=== PATIENT | female | born 1955 | race Caucasian/White ===

== ENCOUNTER 2025-01-09 15:37 | Inpatient (IN) | payer OTHER ==
[~2025-01-09] VITALS: Ht 162.6 cm; Wt 79.8 kg
--- NOTE | 2025-01-09 16:24 | ED.PDOC ---
History of Present Illness HPI Comments This is a 69 year-old female, with a Hx of HTN, Afib, CHF, CAD, DM, and high cholesterol, who presents to the ED with a chief complaint of abnormal labs as of today. Patient states she was called by [facility] to go to the ER for abnormal labs that were drawn today. Patient does not know which lab is abnormal. Patient reports being on blood thinners as of 1.5 months ago. Patient has no further complaints at this time and otherwise denies chest pain, dizziness, headache, N/V/D, fever, or chills. Patient was mildly hypertensive at arrival. 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 Family History Family History: Reviewed,noncontributory to illness Social History Smoker: Non-Smoker Alcohol: Denies ETOH Use Drugs: Denies Drug Use Lives In: Home Constitutional: denies: chills, diaphoresis, fatigue, fever, malaise, sweats, weakness, others EENTM: denies: blurred vision, double vision, ear bleeding, ear discharge, ear drainage, ear pain, ear ringing, eye pain, eye redness, hearing loss, mouth pain, mouth swelling, nasal discharge, nose bleeding, nose congestion, nose pain, photophobia, tearing, throat pain, throat swelling, voice changes, others Respiratory: denies: cough, hemoptysis, orthopnea, SOB at rest, shortness of breath, SOB with excertion, stridor, wheezing, others Cardiovascular: denies: chest pain, dizzy spells, diaphoresis, Dyspnea on exertion, edema, irregular heart beat, left arm pain, lightheadedness, palpitations, PND, syncope, others Gastrointestinal: denies: abdomen distended, abdominal pain, blood streaked bowels, constipated, diarrhea, dysphagia, difficulty swallowing, hematemesis, melena, nausea, poor appetite, poor fluid intake, rectal bleeding, rectal pain, vomiting, others Genitourinary: denies: abnormal vagina bleeding, burning, dyspareunia, dysuria, flank pain, frequency, hematuria, incontinence, pain, , vagina discharge, urgency, others Neurological: denies: dizziness, fainting, headache, left sided numbness, left sided weakness, numbness, paresthesia, pre-existing deficit, right sided numbness, right sided weakness, seizure, speech problems, tingling, tremors, weakness, others Musculoskeletal: denies: back pain, gout, joint pain, joint swelling, muscle pain, muscle stiffness, neck pain, others Integumetry: denies: bruises, change in color, change in hair/nails, dryness, laceration, lesions, lumps, rash, wounds, others Allergic/Immunocompromised: denies: Difficulty Healing, Frequent Infections, Hives, Itching, others Hematologic/Lymphatic: denies: anemia, blood clots, easy bleeding, easy bruising, swollen glands, others Endocrine: denies: excessive hunger, excessive sweating, excessive thirst, excessive urination, flushing, intolerance to cold, intolerance to heat, unexplained weight gain, unexplained weight loss, others Psychiatric: denies: anxiety, bipolar disorder, depression, hopeless, panic disorder, schizophrenia, sleepless, suicidal, others All Other Systems: Reviewed and Negative Physical Exam General Appearance: No Apparent Distress (Patient is in no distress at time of evaluation.), Normal HEENT: Normal ENT Inspection, Pharynx Normal, TMs Normal Neck: Full Range of Motion, Non-Tender, Normal, Normal Inspection Respiratory: Chest Non-Tender, Lungs Clear, No Accessory Muscle Use, No Respiratory Distress, Normal Breath Sounds Cardiovascular: No Edema, No JVD, No Murmur, No Gallop, Normal Peripheral Pulses, Regular Rate/Rhythm Breast Exam: Deferred Gastrointestinal: No Organomegaly, Non Tender, No Pulsatile Mass, Normal Bowel Sounds, Soft Genitalia: Deferred Pelvic: Deferred Rectal: Deferred Extremities: No calf tenderness, Normal capillary refill, Normal inspection, Normal range of motion, Non-tender, No pedal edema Neurologic: Alert Cerebellar Function: NOT DONE Reflexes: NOT DONE Skin: Dry, Normal Color, Warm Lymphatic: No Adenopathy Was a procedure done? Was a procedure done?: No Differential Dx Considerations may include: Sepsis, electrolyte abnormality, delayed clotting factor X-Ray, Labs, Meds, VS Vital Signs Date Time Temp Pulse Resp B/P (MAP) Pulse Ox O2 Delivery O2 Flow Rate FiO2 01/09/25 15:42 97.8 99 18 155/73 97 97.8 Lab Test 01/09/25 16:19 Range/Units White Blood Count 6.4 4.4-10.8 10^3/uL Red Blood Count 3.94 L 4.0-5.20 10^6/uL Hemoglobin 11.7 L 12.2-16.2 g/dL Hematocrit 35.3 L 36.0-46.0 % Mean Corpuscular Volume 89.4 80.0-100.0 fL Mean Corpuscular Hemoglobin 29.7 28.0-32.0 pg Mean Corpuscular Hemoglobin Concent 33.2 32.0-36.0 g/dL Red Cell Distribution Width 15.9 H 11.8-14.3 % Platelet Count 336 140-450 10^3/uL Mean Platelet Volume 8.3 6.9-10.8 fL Neutrophils (%) (Auto) 72.8 37.0-80.0 % Lymphocytes (%) (Auto) 17.8 10.0-50.0 % Monocytes (%) (Auto) 8.4 0.0-12.0 % Eosinophils (%) (Auto) 0.1 0.0-7.0 % Basophils (%) (Auto) 0.9 0.0-2.0 % Neutrophils # (Auto) 4.7 1.6-8.6 10 ^3/uL Lymphocytes # (Auto) 1.1 0.4-5.4 10 ^3/uL Monocytes # (Auto) 0.5 0-1.3 10 ^3/uL Eosinophils # (Auto) 0 0-0.8 10 ^3/uL Basophils # (Auto) 0.1 0-0.2 10 ^3/uL Nucleated Red Blood Cells 0.1 % Prothrombin Time 9.3-11.8 sec Prothrombin Time INR > 8.0 *H 0.9-1.15 Activated Partial Thromboplast Time 70.3 *H 24.5-34.5 SEC Sodium Level 135 L 136-145 mmol/L Potassium Level 5.2 H 3.5-5.1 mmol/L Chloride Level 101 98-107 mmol/L Carbon Dioxide Level 26 20-31 mmol/L Anion Gap 8 5-15 Blood Urea Nitrogen 23 9-23 mg/dL Creatinine 1.25 H 0.550-1.02 mg/dL Glomerular Filtration Rate Calc 46 >90 mL/min BUN/Creatinine Ratio 18.4 10.0-20.0 Serum Glucose 304 H 74-106 mg/dL Lactic Acid Level 3.2 *H 0.4-2.0 mmol/L Calcium Level 8.8 8.7-10.4 mg/dL Total Bilirubin 1.4 H 0.2-1.0 mg/dL Aspartate Amino Transferase (AST) 23 13-40 U/L Alanine Aminotransferase (ALT) 26 7-40 U/L Alkaline Phosphatase 80 46-116 U/L Troponin I High Sensitivity 6 </=34 ng/L B-Type Natriuretic Peptide 133.80 0-100 pg/mL Total Protein 6.4 5.7-8.2 g/dL Albumin 3.5 3.2-4.8 g/dL Lipase 28 12-53 U/L X-Ray, Labs, Meds, VS Comment All studies performed the ED were evaluated by me personally. Serum laboratories revealed a mild anemia, elevated lactic acid, hyperglycemia with elevated clotting factors. INR was greater than eight and a PTT was over 70. Patient will be admitted for observation of clotting concerns as patient should have a multi day reprieve from her blood thinners. No reversal agents were started in the ED. Images Reviewed?: Images reviewed and evaluated by me Time of 1ST Reevaluation: 17:40 Reevaluation 1ST: Unchanged Consultation: PCP Patient Education/Counseling: Diagnosis, Treatment Family Education/Counseling: Diagnosis, Treatment SEPSIS Sepsis Screen Date sepsis recognized/suspect: Jan 09, 2025 Time Sepsis recognized/suspect: 1542 Recent Procedure: No On Antibiotic Therapy: No Respiratory Rate >20: No Heart Rate >90: Yes Temp<36 C (96.8 F) or >38.3 C: No SBP <90 or MAP <65 mmHG: No New Acute Mental Status Change: No Is the patient on CPAP, BIPAP,: No Physician Orders Troponin-I Hs (01/09/25 17:06) Troponin-I Hs (01/09/25 19:06) Electrocardigram (01/09/25 16:06) Urinalysis (01/09/25 16:09) Sodium Chloride 0.9% (01/09/25 17:15) Heplock Iv (01/09/25 ) Vital Signs Date Time Temp Pulse Resp B/P (MAP) Pulse Ox O2 Delivery O2 Flow Rate FiO2 01/09/25 15:42 97.8 99 18 155/73 97 97.8 Laboratory Tests Test 01/09/25 16:19 Lactic Acid Level 3.2 mmol/L (0.4-2.0) *H White Blood Count 6.4 10^3/uL (4.4-10.8) Departure 1 Departure Time of Disposition: 17:40 Impression: Primary Impression: Elevated clotting time Additional Impressions: Hyperglycemia Elevated lactic acid level Anemia Disposition: 09 ADMITTED INPATIENT Condition: Stable Discharged With: Self, Spouse Critical Care Note Critical Care Time?: No Stability Stability form required: No Heart Score Heart Score: Heart Score Response (Comments) Value History N/A 0 EKG N/A 0 Age N/A 0 Risk Factors N/A 0 Troponin N/A 0 Total 0 I personally scribed for IRIS LEE PAC ([email or web address]) on 01/09/25 at 16:24. Electronically submitted by Francoise GalavizYobble). IRIS LEE PAC Jan 09, 2025 16:24
[2025-01-09 16:33] LABS: Hematocrit 35.3 % (36.0-46.0); Hemoglobin 11.7 g/dL (12.2-16.2); Mean Corpuscular Hemoglobin 29.7 pg (28.0-32.0); Mean Corpuscular Volume 89.4 fL (80.0-100.0); Nucleated Red Blood Cells % 0.1 %
[2025-01-09 16:50] LABS: Alanine Aminotransferase 26 U/L (7-40); Albumin 3.5 g/dL (3.2-4.8); Alkaline Phosphatase 80 U/L (46-116); Anion Gap 8 (5-15); BUN/Creatinine Ratio 18.4 (10.0-20.0); Blood Urea Nitrogen 23 mg/dL (9-23); Calcium 8.8 mg/dL (8.7-10.4); Carbon Dioxide 26 mmol/L (20-31); Chloride 101 mmol/L (98-107); Lipase 28 U/L (12-53); Total Protein 6.4 g/dL (5.7-8.2)
[2025-01-09 16:51] LABS: Bilirubin, Total 1.4 mg/dL (0.2-1.0); Glucose 304 mg/dL (74-106); Potassium 5.2 mmol/L (3.5-5.1); Sodium 135 mmol/L (136-145)
[2025-01-09 16:52] LABS: Lactic Acid w/Reflex 3.2 mmol/L (0.4-2.0)
[2025-01-09 17:07] LABS: INR > 8.0 (0.9-1.15); Partial Thromboplastin Time 70.3 SEC (24.5-34.5)
[2025-01-09 18:07] VITALS: PULSE 98; RESP 15; O2SAT 96
[2025-01-09] MEDS: SODIUM CHLORIDE 0.9% 1,000 ML IV ONE (18:50)
[2025-01-09] MEDS ORDERED: ONDANSETRON HCL 4 MG/2 ML VIAL IV PRN (20:00)
[2025-01-09] MEDS ORDERED: ACETAMINOPHEN 325 MG TAB PO PRN (20:00)
[2025-01-09] MEDS ORDERED: DEXTROSE (50%) 50ML SYRG IV PRN (20:00)
[2025-01-10] VITALS (8 sets, daily range): BP systolic 105–131; BP diastolic 47–72; PULSE 92–141; RESP 18–19; TEMP 97.3–98.7; O2SAT 91–100
[2025-01-10] MEDS: ACCU-CHEK COMFORT CURVE STRIP VI SCH
--- NOTE | 2025-01-10 00:03 | DVHHP2 ---
History of Present Illness Reason for Visit: Abnormal lab results History of Present Illness 69-year-old female presents for evaluation of abnormal lab results. Patient was contacted to present to the emergency department due to abnormally high INR level. Patient is currently on warfarin. Denies hematuria, melena or hematemesis. Past Medical History Atrial fibrillation, CHF, CAD, diabetes mellitus, dyslipidemia, hypertension, mi Past Surgical History Pacemaker, tubal ligation Family History Noncontributory Smoke: No ALCOHOL: none Drugs: None Lives: with Family Review of Systems Review of Systems Review of systems are currently negative otherwise addressed in HPI. Allergies: Coded Allergies: Iodine (Verified Allergy, Unknown, 01/09/25) Medications Current Medications Medications Dose Ordered Sig/João Route Start Time Stop Time Status Last Admin Dose Admin Gabapentin 100 mg BID PO 01/09/25 22:00 Isosorbide Dinitrate 20 mg BID PO 01/09/25 22:00 Metoprolol Succinate 50 mg DAILY PO 01/10/25 10:00 Atorvastatin Calcium 80 mg HS PO 01/09/25 22:00 Losartan Potassium 25 mg DAILY PO 01/10/25 10:00 Furosemide 40 mg DAILY PO 01/10/25 10:00 Diagnostic Test (Pha) 1 strip Q6HR 01/10/25 00:00 Insulin Human Regular Q6HR SC 01/10/25 00:00 Dextrose 50 ml UD PRN IV 01/09/25 20:00 Ondansetron HCl 4 mg Q4HP PRN IV 01/09/25 20:00 Acetaminophen 650 mg Q6HP PRN PO 01/09/25 20:00 Levetiracetam 1,000 mg BID PO 01/09/25 22:00 Exam Vital Signs Vital Signs Date Time Temp Pulse Resp B/P (MAP) Pulse Ox O2 Delivery O2 Flow Rate FiO2 01/09/25 19:30 Room Air* 0 21 01/09/25 19:30 98.5 114 15 132/47 (75) 100 98.5 Exam Gen: 69-year-old female in no apparent distress. Skin: Warm, dry, normal color and texture, no rash. HEENT: Normocephalic atraumatic, mucous membranes moist and pink. Neck: Cervical and supraclavicular nodes normal without enlargement, trachea is midline, thyroid gland is normal without masses. Pulmonary: Clear to auscultation and percussion bilaterally. Cardiac: Regular rate and rhythm. No murmur Abdomen: Soft, nontender, nondistended, bowel sounds present all 4 quadrants, no guarding, no rigidity, no organomegaly. Extremities: No cyanosis, clubbing, no edema Neuro: Cranial nerves II through XII grossly intact, normal affect and speech, no focal motor deficits. Labs/Xrays Labs Test 01/09/25 18:43 01/09/25 16:19 Range/Units Lactic Acid Level 1.3 0.4-2.0 mmol/L Troponin I High Sensitivity 5 </=34 ng/L White Blood Count 6.4 4.4-10.8 10^3/uL Red Blood Count 3.94 L 4.0-5.20 10^6/uL Hemoglobin 11.7 L 12.2-16.2 g/dL Hematocrit 35.3 L 36.0-46.0 % Mean Corpuscular Volume 89.4 80.0-100.0 fL Mean Corpuscular Hemoglobin 29.7 28.0-32.0 pg Mean Corpuscular Hemoglobin Concent 33.2 32.0-36.0 g/dL Red Cell Distribution Width 15.9 H 11.8-14.3 % Platelet Count 336 140-450 10^3/uL Mean Platelet Volume 8.3 6.9-10.8 fL Neutrophils (%) (Auto) 72.8 37.0-80.0 % Lymphocytes (%) (Auto) 17.8 10.0-50.0 % Monocytes (%) (Auto) 8.4 0.0-12.0 % Eosinophils (%) (Auto) 0.1 0.0-7.0 % Basophils (%) (Auto) 0.9 0.0-2.0 % Neutrophils # (Auto) 4.7 1.6-8.6 10 ^3/uL Lymphocytes # (Auto) 1.1 0.4-5.4 10 ^3/uL Monocytes # (Auto) 0.5 0-1.3 10 ^3/uL Eosinophils # (Auto) 0 0-0.8 10 ^3/uL Basophils # (Auto) 0.1 0-0.2 10 ^3/uL Nucleated Red Blood Cells 0.1 % Prothrombin Time 9.3-11.8 sec Prothrombin Time INR > 8.0 *H 0.9-1.15 Activated Partial Thromboplast Time 70.3 *H 24.5-34.5 SEC Sodium Level 135 L 136-145 mmol/L Potassium Level 5.2 H 3.5-5.1 mmol/L Chloride Level 101 98-107 mmol/L Carbon Dioxide Level 26 20-31 mmol/L Anion Gap 8 5-15 Blood Urea Nitrogen 23 9-23 mg/dL Creatinine 1.25 H 0.550-1.02 mg/dL Glomerular Filtration Rate Calc 46 >90 mL/min BUN/Creatinine Ratio 18.4 10.0-20.0 Serum Glucose 304 H 74-106 mg/dL Calcium Level 8.8 8.7-10.4 mg/dL Total Bilirubin 1.4 H 0.2-1.0 mg/dL Aspartate Amino Transferase (AST) 23 13-40 U/L Alanine Aminotransferase (ALT) 26 7-40 U/L Alkaline Phosphatase 80 46-116 U/L B-Type Natriuretic Peptide 133.80 0-100 pg/mL Total Protein 6.4 5.7-8.2 g/dL Albumin 3.5 3.2-4.8 g/dL Lipase 28 12-53 U/L SEPSIS Sepsis Screen Date sepsis recognized/suspect: Jan 09, 2025 Time Sepsis recognized/suspect: 1929 Recent Procedure: No On Antibiotic Therapy: No Respiratory Rate >20: No Heart Rate >90: Yes Temp<36 C (96.8 F) or >38.3 C: No SBP <90 or MAP <65 mmHG: No New Acute Mental Status Change: No Is the patient on CPAP, BIPAP,: No Physician Orders Electrocardigram (01/09/25 16:06) Urinalysis (01/09/25 16:09) Heplock Iv (01/09/25 ) Gabapentin Capsule (Neurontin Capsule) (01/09/25 22:00) Isosorbide Dinitrate Tablet (Isordil Tab (01/09/25 22:00) Metoprolol Xl Succinate (Toprol Xl) (01/10/25 10:00) Atorvastatin (Lipitor) (01/09/25 22:00) Losartan Tablet (Cozaar Tablet) (01/10/25 10:00) Furosemide Tablet (Lasix Tablet) (01/10/25 10:00) PTPTT (01/10/25 04:00) Basic Metabolic Panel (01/10/25 04:00) Glucose Blood (Accu-Chek Comfort Curve T (01/10/25 00:00) Insulin R (Human) (Insulin R) (01/10/25 00:00) Dextrose 50% Syringe (01/09/25 20:00) Ondansetron Hcl (Zofran) (01/09/25 20:00) Complete Blood Count (01/10/25 04:00) Cardiac Diet-2gna,Lofat,Lochol (01/10/25 Breakfast) Condition: Stable (01/09/25 19:53) Acetaminophen Tablet (Tylenol Tablet) (01/09/25 20:00) Bedrest With Bathroom Privileg (01/09/25 19:53) Levetiracetam Tablet (Keppra Tablet) (01/09/25 22:00) Admit (01/09/25 21:26) Vital Signs Date Time Temp Pulse Resp B/P (MAP) Pulse Ox O2 Delivery O2 Flow Rate FiO2 01/09/25 19:30 Room Air* 0 21 01/09/25 19:30 98.5 114 15 132/47 (75) 100 98.5 01/09/25 18:07 97.5 98 15 106/39 (61) 96 97.5 01/09/25 18:07 98 15 96 Room Air* 0 21 Laboratory Tests Test 01/09/25 16:19 01/09/25 18:43 Lactic Acid Level 3.2 mmol/L (0.4-2.0) *H 1.3 mmol/L (0.4-2.0) White Blood Count 6.4 10^3/uL (4.4-10.8) Medications Medications Dose Ordered Sig/João Route Start Time Stop Time Status Last Admin Dose Admin Sodium Chloride 1,000 ml @ 1,000 mls/hr Q1H ONCE IV 01/09/25 17:15 01/09/25 18:14 DC 01/09/25 18:50 1,000 MLS/HR Assessment/Plan Assessment/Plan Assessment Supratherapeutic INR History of atrial fibrillation, on warfarin Diabetes mellitus Hypertension History of DE Plan Admit the patient to Med surge to the hospitalist Vitamin K subcutaneously Hold warfarin Repeat coags in a.m. labs Monitor for bleeding. Continue treatment per orders. Plan discussed with: Patient My Orders Orders - NETO CONTRERAS Procedure Category Date Status Time Gabapentin Capsule PHA 01/09/25 In Process (Neurontin Capsule) 22:00 Isosorbide Dinitrate PHA 01/09/25 In Process Tablet (Isordil Tab 22:00 Metoprolol Xl PHA 01/10/25 In Process Succinate (Toprol Xl) 10:00 Atorvastatin (Lipitor) PHA 01/09/25 In Process 22:00 Losartan Tablet PHA 01/10/25 In Process (Cozaar Tablet) 10:00 Furosemide Tablet PHA 01/10/25 In Process (Lasix Tablet) 10:00 PTPTT LAB 01/10/25 Verified 04:00 Basic Metabolic Panel LAB 01/10/25 Verified 04:00 Glucose Blood PHA 01/10/25 In Process (Accu-Chek Comfort 00:00 Insulin R (Human) PHA 01/10/25 In Process (Insulin R) 00:00 Dextrose 50% Syringe PHA 01/09/25 In Process 20:00 Ondansetron Hcl PHA 01/09/25 In Process (Zofran) 20:00 Complete Blood Count LAB 01/10/25 Verified 04:00 Cardiac DIET 01/10/25 Transmitted Diet-2gna,Lofat,Lochol Breakfast Condition: Stable FRANCIS 01/09/25 In Process 19:53 Acetaminophen Tablet PHA 01/09/25 In Process (Tylenol Tablet) 20:00 Bedrest With Bathroom FRANCIS 01/09/25 In Process Privileg 19:53 Levetiracetam Tablet PHA 01/09/25 In Process (Keppra Tablet) 22:00 Admit ADMIT 01/09/25 Transmitted 21:26 Date of Service: Jan 09, 2025 Billing Provider: NETO CONTRERAS Common Visit Codes: [id number] INP/OBS CARE (MOD) NETO CONTRERAS Jan 10, 2025 00:03
[2025-01-10] MEDS: InsuLIN REG 1unit/0.01ml Soln (100units/ml) SC SCH (00:30)
[2025-01-10] MEDS: ATORVASTATIN 20 MG TAB PO SCH (00:49)
[2025-01-10] MEDS: levETIRAcetam 500 MG TAB PO SCH (00:49)
[2025-01-10] MEDS: GABAPENTIN 100 MG CAP PO SCH (00:50)
[2025-01-10] MEDS: PHYTONADIONE (VIT K)10 MG/ML 1ML VIAL SUBCUT ONE (00:51)
[2025-01-10] MEDS: ISOSORBIDE DINITRATE 10 MG TAB PO SCH (01:03)
[2025-01-10 06:13] LABS: Hematocrit 31.4 % (36.0-46.0); Hemoglobin 10.6 g/dL (12.2-16.2); Mean Corpuscular Hemoglobin 30.5 pg (28.0-32.0); Mean Corpuscular Volume 90.0 fL (80.0-100.0); Nucleated Red Blood Cells % 0.1 %
[2025-01-10 06:21] LABS: Chloride 103 mmol/L (98-107); Potassium 3.8 mmol/L (3.5-5.1); Sodium 139 mmol/L (136-145)
[2025-01-10 06:22] LABS: Anion Gap 8 (5-15); Carbon Dioxide 28 mmol/L (20-31)
[2025-01-10 06:27] LABS: BUN/Creatinine Ratio 19.2 (10.0-20.0); Blood Urea Nitrogen 15 mg/dL (9-23)
[2025-01-10 06:34] LABS: Calcium 8.4 mg/dL (8.7-10.4); Glucose 170 mg/dL (74-106)
[2025-01-10 06:40] LABS: Partial Thromboplastin Time 66.3 SEC (24.5-34.5); Prothrombin Time 59.3 sec (9.3-11.8)
[2025-01-10 07:00] LABS: INR 6.76 (0.9-1.15)
[2025-01-10] MEDS ORDERED: PHYTONADIONE (VIT K)10 MG/ML 1ML VIAL SUBCUT ONE (09:45)
[2025-01-10] MEDS: PHYTONADIONE(VitK) ORAL Susp 10mg/10ml(1mg/ml) PO ONE (10:00)
[2025-01-10 11:00] LABS: Urine Protein, UAD Negative (Negative); Urine WBC Clumps PRESENT /hpf (None Seen)
[2025-01-10] MEDS: FUROSEMIDE 40 MG TAB PO SCH (11:03)
[2025-01-10] MEDS: METOPROLOL SUCCINATE XL 50 MG TAB PO SCH (11:05)
[2025-01-10] MEDS: LOSARTAN POTASSIUM 25 MG TAB PO SCH (11:06)
[2025-01-10] MEDS: INFLUENZA TRIVALENT 2024-2025 0.5 ML INJ IM ONE (14:45)
--- NOTE | 2025-01-10 16:44 | DVHPN2 ---
Subjective same Reviewed: Care Plan, H&P, Labs, Medications, Previous Orders Changes from previous H/P or p: No Changes General: Per HPI Objective Vitals Vital Signs Date Time Temp Pulse Resp B/P (MAP) Pulse Ox O2 Delivery O2 Flow Rate FiO2 01/10/25 12:30 97.7 93 19 121/66 (84) 91 97.7 01/10/25 08:00 Room Air* 0 21 Intake/Output Intake and Output 01/10/25 07:00 Intake Total 101 ml Balance 101 ml Intake Oral 100 ml Tube Feeding 1 ml General Appearance: Alert, Oriented X3, Cooperative HEENT: Atraumatic Lungs: Clear to auscultation Cardiovascular: Regular rate, Other (metallic click present) Abdomen: Normal bowel sounds, Soft, No tenderness Extremities: Other (mild le edema) Medications Current Medications Medications Dose Ordered Sig/João Route Start Time Stop Time Status Last Admin Dose Admin Gabapentin 100 mg BID PO 01/09/25 22:00 01/10/25 11:04 100 MG Isosorbide Dinitrate 20 mg BID PO 01/09/25 22:00 01/10/25 11:04 20 MG Metoprolol Succinate 50 mg DAILY PO 01/10/25 10:00 01/10/25 11:05 50 MG Atorvastatin Calcium 80 mg HS PO 01/09/25 22:00 01/10/25 00:49 80 MG Losartan Potassium 25 mg DAILY PO 01/10/25 10:00 01/10/25 11:06 25 MG Furosemide 40 mg DAILY PO 01/10/25 10:00 01/10/25 11:03 40 MG Diagnostic Test (Pha) 1 strip Q6HR 01/10/25 00:00 01/10/25 11:05 1 STRIP Insulin Human Regular Q6HR SC 01/10/25 00:00 01/10/25 11:01 2 UNITS Dextrose 50 ml UD PRN IV 01/09/25 20:00 Ondansetron HCl 4 mg Q4HP PRN IV 01/09/25 20:00 Acetaminophen 650 mg Q6HP PRN PO 01/09/25 20:00 Levetiracetam 1,000 mg BID PO 01/09/25 22:00 01/10/25 11:04 1,000 MG Ceftriaxone Sodium 50 ml @ 100 mls/hr DAILY@09 IV 01/11/25 09:00 Laboratory Results Laboratory Tests 01/10/25 04:53 Chemistry Test 01/10/25 04:53 Calcium Level 8.4 mg/dL (8.7-10.4) L Coagulation Test 01/10/25 04:53 Prothrombin Time 59.3 sec (9.3-11.8) H Prothrombin Time INR 6.76 (0.9-1.15) *H Activated Partial Thromboplast Time 66.3 SEC (24.5-34.5) H Urinalysis Test 01/10/25 10:00 Urine Color Colorless (Yellow) Urine Clarity Turbid (Clear) H Urine pH 5.5 (5.0-9.0) Urine Specific [place] 1.009 (1.001-1.035) Urine Protein Negative (Negative) Urine Ketones Negative (Negative) Urine Blood Negative /uL (Negative) Urine Nitrite Negative (Negative) Urine Bilirubin Negative (Negative) Urine Urobilinogen 2 mg/dL (Negative) H Urine Leukocyte Esterase 3+ /uL (Negative) Urine RBC 1 /hpf (0 - 4) Urine WBC Clumps Present /hpf (None Seen) Urine Microscopic WBC 232 /HPF (0-5) H Urine Squamous Epithelial Cells Few /hpf (<5) Urine Bacteria Few /hpf (None Seen) H Urine Glucose Trace mg/dL (Normal) Assessment/Plan Assessment/Plan Coumadin toxicity AFib CHF Diabetes Coronary artery disease and history of MD UTI Dyslipidemia Hypertension History of mitral valve replacement/likely metallic Plan: Vitamin K given. We will repeat INR tomorrow and possible home tomorrow if no bleeding and INR acceptable Plan discussed with: Patient, Spouse My Orders Orders - MAT GANNON MD Procedure Category Date Status Time Ceftriaxone 1gm/50ml PHA 01/11/25 In Process (Rocephin) 09:00 Urine Bacterial JOSELINE 01/10/25 Logged Culture 14:37 Hemoglobin & LAB 01/10/25 Logged Hematocrit 14:38 Hemoglobin & LAB 01/10/25 Logged Hematocrit 20:38 Hemoglobin & LAB 01/11/25 Verified Hematocrit 02:38 Date of Service: Jan 10, 2025 Billing Provider: MAT GANNON MD Common Visit Codes: [id number] INP/OBS CARE(HIGH) MAT GANNON MD Jan 10, 2025 16:44
[2025-01-10] MEDS ORDERED: LEVE100020 PO (17:20)
[2025-01-10] MEDS ORDERED: INSUINJ37 SC (17:20)
[2025-01-10] MEDS ORDERED: METO-289 PO (17:20)
[2025-01-10] MEDS ORDERED: PARO10TA93 PO (17:20)
[2025-01-10] MEDS ORDERED: INSU100I54 SC (17:20)
[2025-01-10] MEDS ORDERED: INSU1.2I SC (17:20)
[2025-01-10] MEDS ORDERED: ATOR-47 PO (17:20)
[2025-01-10] MEDS ORDERED: FURO20TA4 PO (17:20)
[2025-01-10] MEDS ORDERED: WARF-110 PO (17:20)
[2025-01-10] MEDS ORDERED: GAB100C PO (17:20)
[2025-01-10] MEDS ORDERED: LOS25T PO (17:20)
[2025-01-10] MEDS ORDERED: OXYB5TAB14 (17:20)
[2025-01-10] MEDS ORDERED: ISOS20TA5 PO (17:20)
[2025-01-10] MEDS ORDERED: METF-370 PO (17:20)
[2025-01-10] MEDS ORDERED: CHOL20007 PO (17:20)
[2025-01-10] MEDS ORDERED: NITR0.4S29 SL (17:20)
[2025-01-10] MEDS ORDERED: OMEP1CAP70 PO (17:20)
[2025-01-10] MEDS ORDERED: POTA-215 (17:20)
[2025-01-10] MEDS ORDERED: ASPI1TAB20 PO (17:20)
[2025-01-10] MEDS ORDERED: WARF4TAB70 PO (17:20)
[2025-01-10] MEDS ORDERED: TIRZ10IN (17:20)
[2025-01-10 17:24] LABS: Hematocrit 30.8 % (36.0-46.0); Hemoglobin 10.3 g/dL (12.2-16.2)
[2025-01-10 21:12] LABS: Hematocrit 32.6 % (36.0-46.0); Hemoglobin 10.9 g/dL (12.2-16.2)
[2025-01-11] VITALS (8 sets, daily range): BP systolic 98–131; BP diastolic 56–72; PULSE 70–102; RESP 17–20; TEMP 97.3–97.7; O2SAT 94–98
[2025-01-11 04:56] LABS: Hematocrit 31.8 % (36.0-46.0); Hemoglobin 10.9 g/dL (12.2-16.2)
[2025-01-11 13:44] LABS: INR 1.14 (0.9-1.15); Prothrombin Time 11.9 sec (9.3-11.8)
[2025-01-11] MEDS: HEPARIN DRIP/D5W 100UNITS/ML 250 ML IV SCH (14:30)
[2025-01-11 14:35] LABS: Hematocrit 33.4 % (36.0-46.0); Hemoglobin 11.1 g/dL (12.2-16.2); Mean Corpuscular Hemoglobin 30.2 pg (28.0-32.0); Mean Corpuscular Volume 90.7 fL (80.0-100.0); Nucleated Red Blood Cells % 0.1 %
--- NOTE | 2025-01-11 15:05 | CONS ---
Pharmacy Clinical Information: INITIATE HEPARIN DRIP AT RATE 1000 UNITS/HR (AFIB, BRIDGING TO WARFARIN) APTT DRAW SCHEDULED FOR 2100 PER RX PROTOCOL [place] [facility]ARZA PHARMACIST Jan 11, 2025 15:05
[2025-01-11] MEDS: WARFARIN SODIUM 5 MG TAB PO ONE (17:29)
--- NOTE | 2025-01-11 17:43 | DVHPN2 ---
Subjective same Reviewed: Care Plan, H&P, Labs, Medications, Previous Orders Changes from previous H/P or p: No Changes General: Per HPI Objective Vitals Vital Signs Date Time Temp Pulse Resp B/P (MAP) Pulse Ox O2 Delivery O2 Flow Rate FiO2 01/11/25 17:00 97.3 92 19 120/57 (78) 94 97.3 01/11/25 08:00 Room Air* 0 21 Intake/Output Intake and Output 01/11/25 07:00 Intake Total 1000 ml Balance 1000 ml Intake Oral 1000 ml # Voids 5 # Bowel Movements 1 General Appearance: Alert, Oriented X3, Cooperative HEENT: Atraumatic Lungs: Clear to auscultation Cardiovascular: Regular rate, Other (metallic click present) Abdomen: Normal bowel sounds, Soft, No tenderness Extremities: Other (mild le edema) Medications Current Medications Medications Dose Ordered Sig/João Route Start Time Stop Time Status Last Admin Dose Admin Gabapentin 100 mg BID PO 01/09/25 22:00 01/11/25 10:15 100 MG Isosorbide Dinitrate 20 mg BID PO 01/09/25 22:00 01/11/25 10:16 20 MG Metoprolol Succinate 50 mg DAILY PO 01/10/25 10:00 01/11/25 10:16 50 MG Atorvastatin Calcium 80 mg HS PO 01/09/25 22:00 01/10/25 21:11 80 MG Losartan Potassium 25 mg DAILY PO 01/10/25 10:00 01/10/25 11:06 25 MG Furosemide 40 mg DAILY PO 01/10/25 10:00 01/11/25 10:15 40 MG Diagnostic Test (Pha) 1 strip Q6HR 01/10/25 00:00 01/11/25 17:37 1 STRIP Insulin Human Regular Q6HR SC 01/10/25 00:00 01/11/25 12:18 8 UNITS Dextrose 50 ml UD PRN IV 01/09/25 20:00 Ondansetron HCl 4 mg Q4HP PRN IV 01/09/25 20:00 Acetaminophen 650 mg Q6HP PRN PO 01/09/25 20:00 Levetiracetam 1,000 mg BID PO 01/09/25 22:00 01/11/25 10:15 1,000 MG Ceftriaxone Sodium 50 ml @ 100 mls/hr DAILY@09 IV 01/11/25 09:00 01/11/25 10:15 100 MLS/HR Heparin Sodium/ Dextrose 250 ml @ 10 mls/hr Q24H IV 01/11/25 14:30 01/11/25 14:30 10 MLS/HR Warfarin Sodium RX PROTOCOL PER PHARMACY PO 01/11/25 14:30 Laboratory Results Laboratory Tests 01/10/25 04:53 01/11/25 13:18 Coagulation Test 01/11/25 13:18 Prothrombin Time 11.9 sec (9.3-11.8) H Prothrombin Time INR 1.14 (0.9-1.15) Urinalysis Test 01/10/25 10:00 Urine Color Colorless (Yellow) Urine Clarity Turbid (Clear) H Urine pH 5.5 (5.0-9.0) Urine Specific [place] 1.009 (1.001-1.035) Urine Protein Negative (Negative) Urine Ketones Negative (Negative) Urine Blood Negative /uL (Negative) Urine Nitrite Negative (Negative) Urine Bilirubin Negative (Negative) Urine Urobilinogen 2 mg/dL (Negative) H Urine Leukocyte Esterase 3+ /uL (Negative) Urine RBC 1 /hpf (0 - 4) Urine WBC Clumps Present /hpf (None Seen) Urine Microscopic WBC 232 /HPF (0-5) H Urine Squamous Epithelial Cells Few /hpf (<5) Urine Bacteria Few /hpf (None Seen) H Urine Glucose Trace mg/dL (Normal) Assessment/Plan Assessment/Plan Coumadin toxicity AFib CHF Diabetes Coronary artery disease and history of OR UTI Dyslipidemia Hypertension History of mitral valve 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 Patient needs anticoagulation because of the mitral valve prosthesis. We will start heparin drip and restart Coumadin and possibly discharged home if INR above two tomorrow Plan discussed with: Patient, Other (Nursing) My Orders Orders - MAT GANNON MD Procedure Category Date Status Time Platelet Monitoring FRANCIS 01/11/25 In Process 14:18 Heparin Per FRANCIS 01/11/25 In Process Standardized Proce 14:18 Discontinue All Im FRANCIS 01/11/25 In Process Injections 14:18 Heparin Drip/D5w PHA 01/11/25 In Process 100units/Ml 14:30 Stat Ekg For Chest FRANCIS 01/11/25 In Process Pain 14:18 Warfarin Per Rx PHA 01/11/25 In Process Protocol (Coumadin 14:30 Consistent DIET 01/11/25 [facility]Diabetes Dinner Complete Blood Count LAB 01/12/25 Verified 04:00 PTPTT LAB 01/11/25 Logged 21:00 Creatinine LAB 01/12/25 Verified 04:00 Heparin Per Pharmacy FRANCIS 01/11/25 In Process Protocol 15:00 Date of Service: Jan 11, 2025 Billing Provider: MAT GANNON MD Common Visit Codes: [id number] INP/OBS CARE(HIGH) MAT GANNON MD Jan 11, 2025 17:42
[2025-01-11 22:22] LABS: INR 1.12 (0.9-1.15); Partial Thromboplastin Time 65.6 SEC (24.5-34.5); Prothrombin Time 11.7 sec (9.3-11.8)
[2025-01-12] VITALS (8 sets, daily range): BP systolic 94–136; BP diastolic 46–74; PULSE 80–109; RESP 16–21; TEMP 97.3–98.5; O2SAT 95–98
[2025-01-12 04:46] LABS: Hematocrit 31.5 % (36.0-46.0); Hemoglobin 10.6 g/dL (12.2-16.2); Mean Corpuscular Hemoglobin 30.3 pg (28.0-32.0); Mean Corpuscular Volume 90.0 fL (80.0-100.0); Nucleated Red Blood Cells % 0.1 %
[2025-01-12 05:19] LABS: INR 1.12 (0.9-1.15); Prothrombin Time 11.7 sec (9.3-11.8)
[2025-01-12 05:42] LABS: Partial Thromboplastin Time 131.1 SEC (24.5-34.5)
[2025-01-12] MEDS: HEPARIN DRIP/D5W 100UNITS/ML 250 ML IV SCH ×2 (06:58→14:00)
[2025-01-12 13:27] LABS: INR 1.12 (0.9-1.15); Partial Thromboplastin Time 67.9 SEC (24.5-34.5); Prothrombin Time 11.7 sec (9.3-11.8)
--- NOTE | 2025-01-12 13:55 | DVHPN2 ---
Subjective Patient denies any symptoms Reviewed: Care Plan, H&P, Labs, Medications, Previous Orders Changes from previous H/P or p: No Changes General: Per HPI Objective Vitals Vital Signs Date Time Temp Pulse Resp B/P (MAP) Pulse Ox O2 Delivery O2 Flow Rate FiO2 01/12/25 09:03 131/71 01/12/25 09:03 109 01/12/25 09:00 97.8 19 96 97.8 01/12/25 08:00 Room Air* 0 21 Intake/Output Intake and Output 01/12/25 07:00 Intake Total 650 ml Balance 650 ml Intake Oral 600 ml IV Total 50 ml # Voids 1 General Appearance: Alert, Oriented X3, Cooperative HEENT: Atraumatic Lungs: Clear to auscultation Cardiovascular: Regular rate, Other Abdomen: Normal bowel sounds, Soft, No tenderness Extremities: Other Skin: Dry, Intact Psych/Mental Status: Mental status NL, Mood NL Medications Current Medications Medications Dose Ordered Sig/João Route Start Time Stop Time Status Last Admin Dose Admin Gabapentin 100 mg BID PO 01/09/25 22:00 01/12/25 09:02 100 MG Isosorbide Dinitrate 20 mg BID PO 01/09/25 22:00 01/12/25 09:02 20 MG Metoprolol Succinate 50 mg DAILY PO 01/10/25 10:00 01/12/25 09:03 50 MG Atorvastatin Calcium 80 mg HS PO 01/09/25 22:00 01/11/25 21:44 80 MG Losartan Potassium 25 mg DAILY PO 01/10/25 10:00 01/12/25 09:03 25 MG Furosemide 40 mg DAILY PO 01/10/25 10:00 01/12/25 09:01 40 MG Diagnostic Test (Pha) 1 strip Q6HR 01/10/25 00:00 01/12/25 11:30 1 STRIP Insulin Human Regular Q6HR SC 01/10/25 00:00 01/12/25 11:47 10 UNITS Dextrose 50 ml UD PRN IV 01/09/25 20:00 Ondansetron HCl 4 mg Q4HP PRN IV 01/09/25 20:00 Acetaminophen 650 mg Q6HP PRN PO 01/09/25 20:00 Ceftriaxone Sodium 50 ml @ 100 mls/hr DAILY@09 IV 01/11/25 09:00 01/12/25 09:04 100 MLS/HR Warfarin Sodium RX PROTOCOL PER PHARMACY PO 01/11/25 14:30 Heparin Sodium/ Dextrose 250 ml @ 7 mls/hr Q24H IV 01/12/25 07:00 01/12/25 06:58 7 MLS/HR Laboratory Results Laboratory Tests 01/10/25 04:53 01/12/25 04:22 Coagulation Test 01/11/25 21:22 01/12/25 04:22 01/12/25 12:45 Prothrombin Time 11.7 sec (9.3-11.8) 11.7 sec (9.3-11.8) 11.7 sec (9.3-11.8) Prothrombin Time INR 1.12 (0.9-1.15) 1.12 (0.9-1.15) 1.12 (0.9-1.15) Activated Partial Thromboplast Time 65.6 SEC (24.5-34.5) H 131.1 SEC (24.5-34.5) *H 67.9 SEC (24.5-34.5) H Urinalysis Test 01/10/25 10:00 Urine Color Colorless (Yellow) Urine Clarity Turbid (Clear) H Urine pH 5.5 (5.0-9.0) Urine Specific [place] 1.009 (1.001-1.035) Urine Protein Negative (Negative) Urine Ketones Negative (Negative) Urine Blood Negative /uL (Negative) Urine Nitrite Negative (Negative) Urine Bilirubin Negative (Negative) Urine Urobilinogen 2 mg/dL (Negative) H Urine Leukocyte Esterase 3+ /uL (Negative) Urine RBC 1 /hpf (0 - 4) Urine WBC Clumps Present /hpf (None Seen) Urine Microscopic WBC 232 /HPF (0-5) H Urine Squamous Epithelial Cells Few /hpf (<5) Urine Bacteria Few /hpf (None Seen) H Urine Glucose Trace mg/dL (Normal) Labs and/or images reviewed: Labs reviewed by me, Image(s) reviewed by me Assessment/Plan Assessment/Plan Impression: -supratherapeutic INR from Coumadin toxicity -UTI -history of prosthetic valve replacement -obesity -diabetes mellitus -atrial fibrillation Plan: -INR 1.12. Continue Coumadin per protocol. -stop heparin drip this evening, start Lovenox injections -regular insulin sliding scale -stop ceftriaxone, switched to Keflex 500 mg p.o. b.i.d. -regular insulin sliding scale -daily INR until INR is 2.0. Total time spent with patient discussing and formulating plan of care: 35 minutes. This medical document was created using an electronic medical record system with [employer] dictation system. Although this document has been carefully reviewed, there may still be some phonetic and typographical errors. These areas are purely typographical due to imperfections of the software programs, and do not reflect any compromise in the patient's medical care. Plan discussed with: Patient, Other (RN) My Orders Orders - ZARA MARKS NP Procedure Category Date Status Time Heparin Drip/D5w PHA 01/12/25 Verified 100units/Ml 14:00 Cephalexin Capsule PHA 01/12/25 Verified (Keflex Capsule) 22:00 Enoxaparin Sodium PHA 01/12/25 Verified (Lovenox) 22:00 Date of Service: Jan 12, 2025 Billing Provider: ZARA MARKS NP Common Visit Codes: [id number] INP/OBS CARE(HIGH) ZARA MARKS NP Jan 12, 2025 13:55
--- NOTE | 2025-01-12 14:29 | CONS ---
Pharmacy Clinical Information: HEPARIN DRIP, AFIB BRIDGING TO WARFARIN @1245 APTT 67.9 - NO BOLUS, NO CHANGE, CONTINUE HEPARIN DRIP RATE 700 UNITS/HR HEPARIN WILL STOP @1999 [facility] CONFIRMED AND READ BACK WITH [facility] Jan 12, 2025 14:29
[2025-01-12] MEDS: WARFARIN SODIUM 5 MG TAB PO ONE (17:06)
[2025-01-12] MEDS: CEPHALEXIN 250 MG CAP PO SCH (21:46)
[2025-01-12] MEDS: ENOXAPARIN SOD 100 MG/1 ML SYRINGE SC SCH (21:47)
[2025-01-13] VITALS (9 sets, daily range): BP systolic 101–131; BP diastolic 48–67; PULSE 87–108; RESP 16–20; TEMP 96.7–99.6; O2SAT 90–100
[2025-01-13 09:36] LABS: INR 1.18 (0.9-1.15); Partial Thromboplastin Time 31.2 SEC (24.5-34.5); Prothrombin Time 12.3 sec (9.3-11.8)
[2025-01-13] MEDS ORDERED: DEXTROSE (50%) 50ML SYRG IV PRN (11:30)
[2025-01-13] MEDS: ACCU-CHEK COMFORT CURVE STRIP VI SCH (11:45)
[2025-01-13] MEDS: InsuLIN REG 1unit/0.01ml Soln (100units/ml) SC SCH (11:46)
--- NOTE | 2025-01-13 13:34 | DVHPN2 ---
Subjective Patient denies any symptoms Reviewed: Care Plan, H&P, Labs, Medications, Previous Orders Changes from previous H/P or p: No Changes General: Per HPI Objective Vitals Vital Signs Date Time Temp Pulse Resp B/P (MAP) Pulse Ox O2 Delivery O2 Flow Rate FiO2 01/13/25 09:18 131/48 01/13/25 09:17 92 01/13/25 08:42 97.9 16 92 97.9 01/13/25 08:00 Room Air* 0 21 Intake/Output Intake and Output 01/13/25 07:00 Intake Total 807 ml Balance 807 ml Intake Oral 680 ml IV Total 127 ml # Voids 2 General Appearance: Alert, Oriented X3, Cooperative HEENT: Atraumatic, PERRLA Lungs: Clear to auscultation Cardiovascular: Regular rate, Other Abdomen: Normal bowel sounds, Soft, No tenderness Extremities: Other Neuro: Normal gait, Normal speech, Cranial nerves 3-12 NL Skin: Dry, Intact Psych/Mental Status: Mental status NL, Mood NL Medications Current Medications Medications Dose Ordered Sig/João Route Start Time Stop Time Status Last Admin Dose Admin Gabapentin 100 mg BID PO 01/09/25 22:00 01/13/25 09:18 100 MG Isosorbide Dinitrate 20 mg BID PO 01/09/25 22:00 01/13/25 09:17 20 MG Metoprolol Succinate 50 mg DAILY PO 01/10/25 10:00 01/13/25 09:17 50 MG Atorvastatin Calcium 80 mg HS PO 01/09/25 22:00 01/12/25 21:47 80 MG Losartan Potassium 25 mg DAILY PO 01/10/25 10:00 01/13/25 09:16 25 MG Furosemide 40 mg DAILY PO 01/10/25 10:00 01/13/25 09:18 40 MG Ondansetron HCl 4 mg Q4HP PRN IV 01/09/25 20:00 Acetaminophen 650 mg Q6HP PRN PO 01/09/25 20:00 Warfarin Sodium RX PROTOCOL PER PHARMACY PO 01/11/25 14:30 Cephalexin 500 mg BID PO 01/12/25 22:00 01/13/25 09:17 500 MG Diagnostic Test (Pha) 1 strip IQ4HR 01/13/25 12:00 01/13/25 11:45 1 STRIP Insulin Human Regular IQ4HR SC 01/13/25 12:00 01/13/25 11:46 20 UNITS Dextrose 50 ml UD PRN IV 01/13/25 11:30 Enoxaparin Sodium 80 mg Q12HR SC 01/13/25 22:00 Insulin Glargine 20 units HS SC 01/13/25 22:00 UNV Laboratory Results Laboratory Tests 01/10/25 04:53 01/12/25 04:22 Coagulation Test 01/13/25 07:32 Prothrombin Time 12.3 sec (9.3-11.8) H Prothrombin Time INR 1.18 (0.9-1.15) H Activated Partial Thromboplast Time 31.2 SEC (24.5-34.5) Urinalysis Test 01/10/25 10:00 Urine Color Colorless (Yellow) Urine Clarity Turbid (Clear) H Urine pH 5.5 (5.0-9.0) Urine Specific [place] 1.009 (1.001-1.035) Urine Protein Negative (Negative) Urine Ketones Negative (Negative) Urine Blood Negative /uL (Negative) Urine Nitrite Negative (Negative) Urine Bilirubin Negative (Negative) Urine Urobilinogen 2 mg/dL (Negative) H Urine Leukocyte Esterase 3+ /uL (Negative) Urine RBC 1 /hpf (0 - 4) Urine WBC Clumps Present /hpf (None Seen) Urine Microscopic WBC 232 /HPF (0-5) H Urine Squamous Epithelial Cells Few /hpf (<5) Urine Bacteria Few /hpf (None Seen) H Urine Glucose Trace mg/dL (Normal) Labs and/or images reviewed: Labs reviewed by me, Image(s) reviewed by me Assessment/Plan Assessment/Plan Impression: -supratherapeutic INR from Coumadin toxicity -UTI -history of prosthetic valve replacement -obesity -diabetes mellitus -atrial fibrillation Plan: Events: continue Bridge therapy. INR subtherapeutic -regular insulin sliding scale, add Lantus -Continue Keflex -regular insulin sliding scale -daily INR until INR is 2.0. Total time spent with patient discussing and formulating plan of care: 35 minutes. This medical document was created using an electronic medical record system with [employer] dictation system. Although this document has been carefully reviewed, there may still be some phonetic and typographical errors. These areas are purely typographical due to imperfections of the software programs, and do not reflect any compromise in the patient's medical care. Plan discussed with: Patient, Other (RN) My Orders Orders - ZARA MARKS NP Procedure Category Date Status Time Cephalexin Capsule PHA 01/12/25 In Process (Keflex Capsule) 22:00 Glucose Blood PHA 01/13/25 In Process (Accu-Chek Comfort 12:00 Insulin R (Human) PHA 01/13/25 In Process (Insulin R) 12:00 Dextrose 50% Syringe PHA 01/13/25 In Process 11:30 Enoxaparin Sodium PHA 01/13/25 In Process (Lovenox) 22:00 Complete Blood Count LAB 01/13/25 Logged 13:09 Comprehensive LAB 01/13/25 Logged Metabolic Panel 13:09 Hemoglobin A1c LAB 01/13/25 Logged 13:09 Insulin Lantus PHA 01/13/25 Logged (Glargine) (Lantus) 22:00 Date of Service: Jan 13, 2025 Billing Provider: ZARA MARKS NP Common Visit Codes: [id number] INP/OBS CARE(HIGH) ZARA MARKS NP Jan 13, 2025 13:34
[2025-01-13 14:31] LABS: Hematocrit 32.6 % (36.0-46.0); Hemoglobin 10.9 g/dL (12.2-16.2); Mean Corpuscular Hemoglobin 30.4 pg (28.0-32.0); Mean Corpuscular Volume 91.2 fL (80.0-100.0); Nucleated Red Blood Cells % 0.2 %
[2025-01-13 15:22] LABS: Alanine Aminotransferase 33 U/L (7-40); Alkaline Phosphatase 87 U/L (46-116); Anion Gap 9 (5-15); BUN/Creatinine Ratio 17.8 (10.0-20.0); Blood Urea Nitrogen 18 mg/dL (9-23); Carbon Dioxide 30 mmol/L (20-31); Potassium 4.2 mmol/L (3.5-5.1)
[2025-01-13 15:27] LABS: Albumin 3.2 g/dL (3.2-4.8); Bilirubin, Total 1.2 mg/dL (0.2-1.0); Calcium 8.4 mg/dL (8.7-10.4); Chloride 97 mmol/L (98-107); Sodium 136 mmol/L (136-145); Total Protein 5.5 g/dL (5.7-8.2)
[2025-01-13 15:28] LABS: Glucose 527 mg/dL (74-106)
[2025-01-13] MEDS: WARFARIN SODIUM 2.5 MG TAB PO ONE (17:55)
[2025-01-13] MEDS: ENOXAPARIN SOD 80 MG/0.8ML SYRINGE SC SCH (21:14)
[2025-01-13] MEDS: INSULIN LANTUS (GLARGINE) 1 /0.01ml (100units/ml) SC SCH (21:14)
[2025-01-14] VITALS (8 sets, daily range): BP systolic 107–121; BP diastolic 41–74; PULSE 87–112; RESP 16–18; TEMP 97.4–98.1; O2SAT 92–98
[2025-01-14 06:18] LABS: INR 1.43 (0.9-1.15); Partial Thromboplastin Time 36.5 SEC (24.5-34.5); Prothrombin Time 14.6 sec (9.3-11.8)
[2025-01-14] MEDS ORDERED: DEXTROSE (50%) 50ML SYRG IV PRN (08:15)
--- NOTE | 2025-01-14 10:16 | DVHPN2 ---
Subjective Patient denies any symptoms Reviewed: Care Plan, H&P, Labs, Medications, Previous Orders Changes from previous H/P or p: No Changes General: Per HPI Objective Vitals Vital Signs Date Time Temp Pulse Resp B/P (MAP) Pulse Ox O2 Delivery O2 Flow Rate FiO2 01/14/25 09:00 97.5 94 16 120/41 (67) 98 97.5 01/13/25 20:05 Room Air* 0 21 Intake/Output Intake and Output 01/14/25 07:00 Intake Total 1950 ml Balance 1950 ml Intake Oral 1950 ml # Voids 4 # Bowel Movements 1 General Appearance: Alert, Oriented X3, Cooperative HEENT: Atraumatic, PERRLA Lungs: Clear to auscultation Cardiovascular: Regular rate, Other Abdomen: Normal bowel sounds, Soft, No tenderness Extremities: Other Neuro: Normal gait, Normal speech, Cranial nerves 3-12 NL Skin: Dry, Intact Psych/Mental Status: Mental status NL, Mood NL Medications Current Medications Medications Dose Ordered Sig/João Route Start Time Stop Time Status Last Admin Dose Admin Gabapentin 100 mg BID PO 01/09/25 22:00 01/13/25 21:09 100 MG Isosorbide Dinitrate 20 mg BID PO 01/09/25 22:00 01/13/25 21:10 20 MG Metoprolol Succinate 50 mg DAILY PO 01/10/25 10:00 01/13/25 09:17 50 MG Atorvastatin Calcium 80 mg HS PO 01/09/25 22:00 01/13/25 21:10 80 MG Losartan Potassium 25 mg DAILY PO 01/10/25 10:00 01/13/25 09:16 25 MG Furosemide 40 mg DAILY PO 01/10/25 10:00 01/13/25 09:18 40 MG Ondansetron HCl 4 mg Q4HP PRN IV 01/09/25 20:00 Acetaminophen 650 mg Q6HP PRN PO 01/09/25 20:00 Warfarin Sodium RX PROTOCOL PER PHARMACY PO 01/11/25 14:30 Cephalexin 500 mg BID PO 01/12/25 22:00 01/13/25 21:10 500 MG Enoxaparin Sodium 80 mg Q12HR SC 01/13/25 22:00 01/13/25 21:14 80 MG Insulin Glargine 20 units HS SC 01/13/25 22:00 01/13/25 21:14 20 UNITS Diagnostic Test (Pha) 1 strip ACHS 01/14/25 11:30 Insulin Human Regular HS SC 01/14/25 22:00 Insulin Human Regular AC SC 01/14/25 11:30 Dextrose 50 ml UD PRN IV 01/14/25 08:15 Laboratory Results Laboratory Tests 01/13/25 14:06 Chemistry Test 01/13/25 14:06 Albumin 3.2 g/dL (3.2-4.8) Calcium Level 8.4 mg/dL (8.7-10.4) L Total Protein 5.5 g/dL (5.7-8.2) L Coagulation Test 01/14/25 04:46 Prothrombin Time 14.6 sec (9.3-11.8) H Prothrombin Time INR 1.43 (0.9-1.15) H Activated Partial Thromboplast Time 36.5 SEC (24.5-34.5) H LFT Test 01/13/25 14:06 Alanine Aminotransferase (ALT) 33 U/L (7-40) Alkaline Phosphatase 87 U/L (46-116) Aspartate Amino Transferase (AST) 40 U/L (13-40) Total Bilirubin 1.2 mg/dL (0.2-1.0) H HgA1c, TSH Test 01/13/25 14:06 Hemoglobin A1c 8.7 % A1C (<5.7) H Urinalysis Test 01/10/25 10:00 Urine Color Colorless (Yellow) Urine Clarity Turbid (Clear) H Urine pH 5.5 (5.0-9.0) Urine Specific [place] 1.009 (1.001-1.035) Urine Protein Negative (Negative) Urine Ketones Negative (Negative) Urine Blood Negative /uL (Negative) Urine Nitrite Negative (Negative) Urine Bilirubin Negative (Negative) Urine Urobilinogen 2 mg/dL (Negative) H Urine Leukocyte Esterase 3+ /uL (Negative) Urine RBC 1 /hpf (0 - 4) Urine WBC Clumps Present /hpf (None Seen) Urine Microscopic WBC 232 /HPF (0-5) H Urine Squamous Epithelial Cells Few /hpf (<5) Urine Bacteria Few /hpf (None Seen) H Urine Glucose Trace mg/dL (Normal) Labs and/or images reviewed: Labs reviewed by me, Image(s) reviewed by me Assessment/Plan Assessment/Plan Impression: -supratherapeutic INR from Coumadin toxicity -UTI -history of prosthetic valve replacement -obesity -diabetes mellitus -atrial fibrillation Plan: Events: INR continues to be subtherapeutic, 1.4. Continue bridge therapy. Blood sugars improved. -change sliding scale to moderate a.c. HS, continue Lantus 20 units q.h.s. -Continue Keflex -regular insulin sliding scale -daily INR until INR is 2.0. -long discussion made with the patient's and son who were bedside regarding plan of care. All questions answered. Total time spent with patient and family regarding advance care plannin minutes. Total time spent with patient discussing and formulating plan of care: 35 minutes. This medical document was created using an electronic medical record system with [employer] dictation system. Although this document has been carefully reviewed, there may still be some phonetic and typographical errors. These areas are purely typographical due to imperfections of the software programs, and do not reflect any compromise in the patient's medical care. Plan discussed with: Patient, Other (RN) My Orders Orders - ZARA MARKS NP Procedure Category Date Status Time Enoxaparin Sodium PHA 01/13/25 In Process (Lovenox) 22:00 Insulin Lantus PHA 01/13/25 In Process (Glargine) (Lantus) 22:00 Glucose Blood PHA 01/14/25 In Process (Accu-Chek Comfort 11:30 Insulin R (Human) PHA 01/14/25 In Process (Insulin R) 22:00 Insulin R (Human) PHA 01/14/25 In Process (Insulin R) 11:30 Dextrose 50% Syringe PHA 01/14/25 In Process 08:15 Date of Service: Jan 14, 2025 Billing Provider: ZARA MARKS NP Common Visit Codes: [id number] INP/OBS CARE(HIGH) Secondary Visit Codes: [id number] CARE PLAN 30 MINUTES ZARA MARKS NP Jan 14, 2025 10:16
[2025-01-14] MEDS: ACCU-CHEK COMFORT CURVE STRIP VI SCH (12:13)
[2025-01-14] MEDS: InsuLIN REG 1unit/0.01ml Soln (100units/ml) SC SCH ×2 (12:16→22:05)
[2025-01-14] MEDS: InsuLIN REG 1unit/0.01ml Soln (100units/ml) IV ONE ×2 (12:17→13:54)
[2025-01-14] MEDS: SODIUM CHLORIDE 0.9% 1,000 ML IV ONE (13:54)
[2025-01-14] MEDS: WARFARIN SODIUM 2 MG TAB PO ONE (17:03)
[2025-01-15 01:00] VITALS: BP 134/71; PULSE 89; RESP 16; TEMP 97.8; O2SAT 100
[2025-01-15 05:00] VITALS: BP 132/70; PULSE 103; RESP 16; TEMP 97.8; O2SAT 93
[2025-01-15 08:00] VITALS: PULSE 111
[2025-01-15 08:08] LABS: INR 2.07 (0.9-1.15); Partial Thromboplastin Time 40.2 SEC (24.5-34.5); Prothrombin Time 20.4 sec (9.3-11.8)
[2025-01-15 08:42] VITALS: BP 114/58; PULSE 113; RESP 14; TEMP 97.5; O2SAT 100
[2025-01-15 13:00] VITALS: BP 100/52; PULSE 104; RESP 18; TEMP 97.5; O2SAT 96
[2025-01-15] MEDS ORDERED: METF-370 PO (13:07)
--- NOTE | 2025-01-15 13:11 | DVHDS2 ---
Discharge Summary Date of Admission Jan 10, 2025 at 00:46 Date of Discharge: Jan 15, 2025 Admitting Diagnosis Supratherapeutic INR Labs/Diagnostic Data: Laboratory Results Test 01/15/25 11:02 01/15/25 07:23 01/13/25 14:06 01/10/25 10:00 POC Glucose 377 mg/dl (70-106) Prothrombin Time 20.4 sec (9.3-11.8) Prothrombin Time INR 2.07 (0.9-1.15) Activated Partial Thromboplast Time 40.2 SEC (24.5-34.5) White Blood Count 3.5 10^3/uL (4.4-10.8) Red Blood Count 3.58 10^6/uL (4.0-5.20) Hemoglobin 10.9 g/dL (12.2-16.2) Hematocrit 32.6 % (36.0-46.0) Mean Corpuscular Volume 91.2 fL (80.0-100.0) Mean Corpuscular Hemoglobin 30.4 pg (28.0-32.0) Mean Corpuscular Hemoglobin Concent 33.3 g/dL (32.0-36.0) Red Cell Distribution Width 16.4 % (11.8-14.3) Platelet Count 271 10^3/uL (140-450) Mean Platelet Volume 7.8 fL (6.9-10.8) Neutrophils (%) (Auto) 71.5 % (37.0-80.0) Lymphocytes (%) (Auto) 20.8 % (10.0-50.0) Monocytes (%) (Auto) 6.8 % (0.0-12.0) Eosinophils (%) (Auto) 0.1 % (0.0-7.0) Basophils (%) (Auto) 0.8 % (0.0-2.0) Neutrophils # (Auto) 2.5 10 ^3/uL (1.6-8.6) Lymphocytes # (Auto) 0.7 10 ^3/uL (0.4-5.4) Monocytes # (Auto) 0.2 10 ^3/uL (0-1.3) Eosinophils # (Auto) 0 10 ^3/uL (0-0.8) Basophils # (Auto) 0 10 ^3/uL (0-0.2) Nucleated Red Blood Cells 0.2 % Sodium Level 136 mmol/L (136-145) Potassium Level 4.2 mmol/L (3.5-5.1) Chloride Level 97 mmol/L (98-107) Carbon Dioxide Level 30 mmol/L (20-31) Anion Gap 9 (5-15) Blood Urea Nitrogen 18 mg/dL (9-23) Creatinine 1.01 mg/dL (0.550-1.02) Glomerular Filtration Rate Calc 60 mL/min (>90) BUN/Creatinine Ratio 17.8 (10.0-20.0) Serum Glucose 527 mg/dL (74-106) Hemoglobin A1c 8.7 % A1C (<5.7) Calcium Level 8.4 mg/dL (8.7-10.4) Total Bilirubin 1.2 mg/dL (0.2-1.0) Aspartate Amino Transferase (AST) 40 U/L (13-40) Alanine Aminotransferase (ALT) 33 U/L (7-40) Alkaline Phosphatase 87 U/L (46-116) Total Protein 5.5 g/dL (5.7-8.2) Albumin 3.2 g/dL (3.2-4.8) Urine Color Colorless (Yellow) Urine Clarity Turbid (Clear) Urine pH 5.5 (5.0-9.0) Urine Specific [place] 1.009 (1.001-1.035) Urine Protein Negative (Negative) Urine Ketones Negative (Negative) Urine Blood Negative /uL (Negative) Urine Nitrite Negative (Negative) Urine Bilirubin Negative (Negative) Urine Urobilinogen 2 mg/dL (Negative) Urine Leukocyte Esterase 3+ /uL (Negative) Urine RBC 1 /hpf (0 - 4) Urine WBC Clumps Present /hpf (None Seen) Urine Microscopic WBC 232 /HPF (0-5) Urine Squamous Epithelial Cells Few /hpf (<5) Urine Bacteria Few /hpf (None Seen) Urine Glucose Trace mg/dL (Normal) Test 01/09/25 18:43 01/09/25 16:19 Lactic Acid Level 1.3 mmol/L (0.4-2.0) Troponin I High Sensitivity 5 ng/L (</=34) B-Type Natriuretic Peptide 133.80 pg/mL (0-100) Lipase 28 U/L (12-53) Other Laboratory Tests 01/13/25 14:06 Brief Hx & Hospital Course: History of Present Illness 69-year-old female presents for evaluation of abnormal lab results. Patient was contacted to present to the emergency department due to abnormally high INR level. Patient is currently on warfarin. Denies hematuria, melena or hematemesis. Course of hospitalization: Patient's INR was found to be greater than eight. Patient received multiple doses of vitamin K with the patient's INR dropping to 1.0. Patient was restarted on Coumadin, with bridge therapy also initiated. Patient was transitioned from heparin drip to Lovenox while on Coumadin. Today, patient's INR is now therapeutic. Patient will be discharged home and we will follow up with her new PCP within 1-2 weeks. Patient will also have arrangements to see Coumadin clinic in one week for adjustment of her Coumadin therapy. She will be continued on Coumadin at 4 mg p.o. daily. Patient will continue all her other previous medications for diabetes mellitus and hypertension. Physical examination General: Alert and Oriented x3. No acute distress. Well-nourished. Eyes: EOMI. Anicteric. HENT: Moist mucous membranes. Lungs: Clear to auscultation bilaterally. No accessory muscle use. Cardiovascular: Regular rate and rhythm. No murmur. No JVD. Abdomen: Soft, non-tender and non-distended. No palpable masses. Extremities: No edema. Non-tender. Skin: No rashes or lesions. Warm. Neurologic: No focal neurological deficits. CN II-XII grossly intact, but not individually tested. Psychiatric: Cooperative. Appropriate mood and affect. Total time spent with patient discussing and formulating plan of care: 35 minutes. This medical document was created using an electronic medical record system with [employer] dictation system. Although this document has been carefully reviewed, there may still be some phonetic and typographical errors. These areas are purely typographical due to imperfections of the software programs, and do not reflect any compromise in the patient's medical care. Condition at Discharge: Guarded Final Diagnosis/Problems List Supra therapeutic INR -UTI -history of prosthetic valve replacement -obesity -diabetes mellitus -atrial fibrillation Discharge Disposition: Home Discharge Instruct/Medications Diet: Consistent carbohydrate Activity: No Restrictions, As Tolerated Follow Up/Referral: Follow up with PCP in one week Coumadin clinic in one week Medications: Warfarin 4 mg p.o. daily Continue other home medications per medication reconciliation Scheduled Aspirin (Aspir-81), 81 MG PO DAILY, (Reported) Atorvastatin Calcium (Atorvastatin Calcium), 1 TAB PO DAILY, (Reported) Cholecalciferol (Vitamin D3), 1 TAB PO DAILY, (Reported) Furosemide (Furosemide), 1 TAB PO DAILY, (Reported) Levetiracetam (Levetiracetam), 1 TAB PO BID, (Reported) Losartan Potassium (Losartan Potassium), 1 TAB PO DAILY, (Reported) Metformin Hydrochloride (Metformin Hcl), 1 TAB PO BID Metoprolol Succinate (Metoprolol Succinate Er), 1 TAB PO DAILY, (Reported) Nitroglycerin (Ntrostat Sublingual), 0.4 MG SL PRN, (Reported) Omeprazole (Omeprazole Dr), 1 CAP PO DAILY, (Reported) Paroxetine Hydrochloride (Paroxetine Hydrochloride), 1 TAB PO DAILY, (Reported) Warfarin Sodium (Warfarin Sodium), 1 TAB PO DAILY, (Reported) Miscellaneous Medications Gabapentin (Gabapentin), CAP PO, (Reported) Insulin Glargine (Toujeo Solostar), SC, (Reported) Insulin Glargine (Lantus Solostar), SC, (Reported) Insulin Lispro (Insulin Lispro Kwikpen), SC, (Reported) Isosorbide Dinitrate (Isosorbide Dinitrate), TAB PO, (Reported) Oxybutynin Chloride (Oxybutynin Chloride), (Reported) Potassium Chloride (Klor-Con M10), (Reported) Tirzepatide (Mounjaro), (Reported) Warfarin Sodium (Warfarin Sodium), TAB PO, (Reported) 36 Discharge Statement: "Patient was advised to return to the ER or call 911 if any headaches, dizziness, shortness of breath, chest pain, abdominal pain, bleeding, fevers, or worsening of medical condition. Patient was counseled about treatment plan, medications, possible side effects, patientverbalized understanding. All questions were answered to the best of my ability. This discharge took greater then 30 minutes in planning, reviewing documentation, counseling the patient, and discussing with other team members." ASSESSMENT ASSESSMENT Assessment Supra therapeutic INR Date of Service: Jan 15, 2025 Billing Provider: ZARA MARKS NP Common Visit Codes: [id number] DISCH DAY >30min ZARA MARKS [employer] Jan 15, 2025 13:11
[2025-01-15] MEDS ORDERED: WARF-112 PO (15:17)
[2025-01-15] MEDS ORDERED: WARFARIN SODIUM 2 MG TAB PO ONE (17:00)
== END 2025-01-15 16:20 | disposition home or self-care (01) | DRG 690 ==
LOC: ER 15:42 → UNDOADMIN 21:26 → OVERFLOW 21:26 → WEST WING 23:50 → OVERFLOW 23:50 → WEST WING 01-10 00:46 → TELE-WESTW 01-10 02:32
PROVIDERS: ADMIT Nurse Practitioner Acute Care; ATTEND Nurse Practitioner Acute Care
DX: N39.0 Urinary tract infection, site not specified (principal); R79.1 Abnormal coagulation profile; T45.515A Adverse effect of anticoagulants, initial encounter; I11.0 Hypertensive heart disease with heart failure; I25.10 Atherosclerotic heart disease of native coronary artery without angina pectoris; I48.91 Unspecified atrial fibrillation; I50.9 Heart failure, unspecified; E78.00 Pure hypercholesterolemia, unspecified; D64.9 Anemia, unspecified; E11.65 Type 2 diabetes mellitus with hyperglycemia; E66.9 Obesity, unspecified; Z68.30 Body mass index [BMI] 30.0-30.9, adult; I25.2 Old myocardial infarction; Z95.0 Presence of cardiac pacemaker; Z98.51 Tubal ligation status; Z79.01 Long term (current) use of anticoagulants; Z95.2 Presence of prosthetic heart valve; Y92.89 Other specified places as the place of occurrence of the external cause; Z79.4 Long term (current) use of insulin
CPT/HCPCS: 36415; 80048; 80053; 81001; 82565; 82962; 83036; 83605; 83690; 83880; 84484; 85014; 85018; 85025; 85610; 85730; 90656; 96360; G0378; J1815; J3430

== ENCOUNTER 2025-01-18 20:50 | Emergency (ER) | payer OTHER ==
[~2025-01-18] VITALS: Ht 162.6 cm; Wt 74.8 kg
[~2025-01-18 20:50] MED LIST: ASPI1TAB20 PO; ATOR-47 PO; CHOL20007 PO; FURO20TA4 PO; GAB100C PO; INSU1.2I SC; INSU100I54 SC; INSUINJ37 SC; ISOS20TA5 PO; LEVE100020 PO; LOS25T PO; METF-370 PO; METO-289 PO; NITR0.4S29 SL; OMEP1CAP70 PO; OXYB5TAB14; PARO10TA93 PO; POTA-215; TIRZ10IN; WARF-112 PO
[2025-01-18 21:59] LABS: Hematocrit 35.0 % (36.0-46.0); Hemoglobin 11.7 g/dL (12.2-16.2); Mean Corpuscular Hemoglobin 31.0 pg (28.0-32.0); Mean Corpuscular Volume 92.4 fL (80.0-100.0); Nucleated Red Blood Cells % 0.1 %
[2025-01-18 22:05] LABS: Chloride 101 mmol/L (98-107); Potassium 4.8 mmol/L (3.5-5.1)
[2025-01-18 22:06] LABS: Anion Gap 8 (5-15); Carbon Dioxide 27 mmol/L (20-31)
[2025-01-18 22:09] LABS: Calcium 8.6 mg/dL (8.7-10.4); Sodium 136 mmol/L (136-145)
[2025-01-18 22:11] LABS: BUN/Creatinine Ratio 22.8 (10.0-20.0); Blood Urea Nitrogen 23 mg/dL (9-23)
[2025-01-18 22:12] LABS: Glucose 386 mg/dL (74-106)
--- NOTE | 2025-01-19 00:05 | ED.PDOC ---
History of present illness HPI Comments Patient is a pleasant 69-year-old female who arrives to the ED today with her due to complaints of difficulty lowering her blood sugar today. Patient has a history of insulin-dependent diabetes, but states that she has utilize multiple rounds of insulin with only minimal effects. Patient states her blood sugars usually well controlled. Patient denies any fever nausea or vomiting. Patient was tachycardic at arrival. Chief Complaint: Hyperglycemia Time Seen by MD: 20:51 History of present illness: Nurses Notes Allergies: Coded Allergies: Iodine (Verified Allergy, Unknown, 01/09/25) Home Meds Active Scripts Warfarin Sodium (Warfarin Sodium) 4 Mg Tab, 1 TAB PO DAILY, #90 TAB 1 Refill Prov:ZARA MARKS COOK JELLY 01/15/25 Metformin Hydrochloride (Metformin Hcl) 500 Mg Tab, 1 TAB PO BID for 30 Days, #60 TAB 2 Refills Prov:ZARA MARKS COOK JELLY 01/15/25 Reported Medications Levetiracetam (Levetiracetam) 1,000 Mg Tab, 1 TAB PO BID 01/10/25 Insulin Glargine (Lantus Solostar) 100 Unit/Ml Inj, SC 01/10/25 Insulin Lispro (Insulin Lispro Kwikpen) 100 Unit/Ml Inj, SC 01/10/25 Furosemide (Furosemide) 20 Mg Tab, 1 TAB PO DAILY 01/10/25 Cholecalciferol (VITAMIN D3) 2,000 Unit Tab, 1 TAB PO DAILY, #30 TAB 5 Refills 01/10/25 Potassium Chloride (Klor-Con M10) 10 Meq Tab 01/10/25 Losartan Potassium (Losartan Potassium) 25 Mg Tab, 1 TAB PO DAILY 01/10/25 Tirzepatide (Mounjaro) 10 Mg/0.5 Ml Inj 01/10/25 Insulin Glargine (Toujeo Solostar) 300 Unit/Ml Inj, SC 01/10/25 Nitroglycerin (NTROSTAT SUBLINGUAL) 0.4 Mg Sl, 0.4 MG SL PRN, TAB *MAY REPEAT EVERY 5 MINUTES X 3 TOTAL IF NO RELIEF, INITIATE ANALGESIC THERAPY. NOTIFY PHYSICIAN *Do not crush. 01/10/25 Atorvastatin Calcium (ATORVASTATIN CALCIUM) 80 Mg Tab, 1 TAB PO DAILY 01/10/25 Gabapentin (Gabapentin) 100 Mg Cap, CAP PO 01/10/25 Oxybutynin Chloride (Oxybutynin Chloride) 5 Mg Tab 01/10/25 Paroxetine Hydrochloride (Paroxetine Hydrochloride) 10 Mg Tab, 1 TAB PO DAILY 01/10/25 Omeprazole (Omeprazole Dr) 20 Mg Cap, 1 CAP PO DAILY 01/10/25 Isosorbide Dinitrate (Isosorbide Dinitrate) 20 Mg Tab, TAB PO 01/10/25 Aspirin (Aspir-81) 81 Mg Tab, 81 MG PO DAILY, TAB 01/10/25 Metoprolol Succinate (Metoprolol Succinate Er) 50 Mg Tab, 1 TAB PO DAILY 01/10/25 Discontinued Reported Medications Warfarin Sodium (Warfarin Sodium) 1 Mg Tab, TAB PO 01/10/25 Warfarin Sodium (Warfarin Sodium) 2.5 Mg Tab, 1 TAB PO DAILY 01/10/25 Information Source: Patient, Spouse Mode of Arrival: Ambulatory Timing: Hours Duration: Since onset Prehospital treatment: Treatment Richey: Shaky Symptoms: Anxious History of: Diabetes, Insulin use Modifying factors: Nothing Past Medical History PAST MEDICAL HISTORY: DM Surgical History: Denies all surgeries LOCKSMITH HELPER History: No Pertinent LOCKSMITH HELPER History Family History Family History: Reviewed,noncontributory to illness, No family hx of Cancer, No family hx of DM, No family hx of Heart bayron, No family hx of HTN, No family hx ofKidney bayron, No family hx of Liver abyron, No family hx of Lung bayron, No family hx of Stroke Social History Smoker: Non-Smoker Alcohol: Denies ETOH Use Drugs: Denies Drug Use Lives In: Home Constitutional: reports: weakness; denies: chills, diaphoresis, fatigue, fever, malaise, sweats, others EENTM: denies: blurred vision, double vision, ear bleeding, ear discharge, ear drainage, ear pain, ear ringing, eye pain, eye redness, hearing loss, mouth pain, mouth swelling, nasal discharge, nose bleeding, nose congestion, nose pain, photophobia, tearing, throat pain, throat swelling, voice changes, others Respiratory: denies: cough, hemoptysis, orthopnea, SOB at rest, shortness of breath, SOB with excertion, stridor, wheezing, others Cardiovascular: denies: chest pain, dizzy spells, diaphoresis, Dyspnea on exertion, edema, irregular heart beat, left arm pain, lightheadedness, palpitations, PND, syncope, others Gastrointestinal: denies: abdomen distended, abdominal pain, blood streaked bowels, constipated, diarrhea, dysphagia, difficulty swallowing, hematemesis, melena, nausea, poor appetite, poor fluid intake, rectal bleeding, rectal pain, vomiting, others Genitourinary: denies: abnormal vagina bleeding, burning, dyspareunia, dysuria, flank pain, frequency, hematuria, incontinence, pain, , vagina discharge, urgency, others Neurological: denies: dizziness, fainting, headache, left sided numbness, left sided weakness, numbness, paresthesia, pre-existing deficit, right sided num bness, right sided weakness, seizure, speech problems, tingling, tremors, weakness, others Musculoskeletal: denies: back pain, gout, joint pain, joint swelling, muscle pain, muscle stiffness, neck pain, others Integumetry: denies: bruises, change in color, change in hair/nails, dryness, laceration, lesions, lumps, rash, wounds, others Allergic/Immunocompromised: denies: Difficulty Healing, Frequent Infections, Hives, Itching, others Hematologic/Lymphatic: denies: anemia, blood clots, easy bleeding, easy bruising, swollen glands, others Endocrine: denies: excessive hunger, excessive sweating, excessive thirst, excessive urination, flushing, intolerance to cold, intolerance to heat, unexplained weight gain, unexplained weight loss, others Psychiatric: reports: anxiety; denies: bipolar disorder, depression, hopeless, panic disorder, schizophrenia, sleepless, suicidal, others Physical Exam General Appearance: Mild Distress (Moderate distress due to anxiety related to her blood sugar concerns.), Normal HEENT: Normal ENT Inspection, Pharynx Normal, TMs Normal Neck: Full Range of Motion, Non-Tender, Normal, Normal Inspection Respiratory: Chest Non-Tender, Lungs Clear, No Accessory Muscle Use, No Respiratory Distress, Normal Breath Sounds Cardiovascular: No Edema, No JVD, No Murmur, No Gallop, Normal Peripheral Pulses, Regular Rate/Rhythm Breast Exam: Deferred Gastrointestinal: No Organomegaly, Non Tender, No Pulsatile Mass, Normal Bowel Sounds, Soft Genitalia: Deferred Pelvic: Deferred Rectal: Deferred Extremities: Normal capillary refill, No pedal edema Neurologic: Alert Cerebellar Function: NOT DONE Reflexes: NOT DONE Skin: Dry, Normal Color, Warm Lymphatic: No Adenopathy Was a procedure done? Was a procedure done?: No Differential Diagnosis (DM) Differential Diagnosis: Dehydration, DKA, Electrolyte Abnormality, Hypergl ycemia, UTI X-Ray, Labs, Meds, VS Vital Signs Date Time Temp Pulse Resp B/P (MAP) Pulse Ox O2 Delivery O2 Flow Rate FiO2 01/18/25 21:05 97.9 109 16 134/54 95 97.9 Lab Test 01/18/25 22:57 01/18/25 21:50 Range/Units Troponin I High Sensitivity 9 5 </=34 ng/L White Blood Count 3.7 L 4.4-10.8 10^3/uL Red Blood Count 3.79 L 4.0-5.20 10^6/uL Hemoglobin 11.7 L 12.2-16.2 g/dL Hematocrit 35.0 L 36.0-46.0 % Mean Corpuscular Volume 92.4 80.0-100.0 fL Mean Corpuscular Hemoglobin 31.0 28.0-32.0 pg Mean Corpuscular Hemoglobin Concent 33.5 32.0-36.0 g/dL Red Cell Distribution Width 18.0 H 11.8-14.3 % Platelet Count 264 140-450 10^3/uL Mean Platelet Volume 7.7 6.9-10.8 fL Neutrophils (%) (Auto) 67.9 37.0-80.0 % Lymphocytes (%) (Auto) 23.6 10.0-50.0 % Monocytes (%) (Auto) 7.6 0.0-12.0 % Eosinophils (%) (Auto) 0.2 0.0-7.0 % Basophils (%) (Auto) 0.7 0.0-2.0 % Neutrophils # (Auto) 2.5 1.6-8.6 10 ^3/uL Lymphocytes # (Auto) 0.9 0.4-5.4 10 ^3/uL Monocytes # (Auto) 0.3 0-1.3 10 ^3/uL Eosinophils # (Auto) 0 0-0.8 10 ^3/uL Basophils # (Auto) 0 0-0.2 10 ^3/uL Nucleated Red Blood Cells 0.1 % Sodium Level 136 136-145 mmol/L Potassium Level 4.8 3.5-5.1 mmol/L Chloride Level 101 98-107 mmol/L Carbon Dioxide Level 27 20-31 mmol/L Anion Gap 8 5-15 Blood Urea Nitrogen 23 9-23 mg/dL Creatinine 1.01 0.550-1.02 mg/dL Glomerular Filtration Rate Calc 60 >90 mL/min BUN/Creatinine Ratio 22.8 H 10.0-20.0 Serum Glucose 386 H 74-106 mg/dL Calcium Level 8.6 L 8.7-10.4 mg/dL B-Type Natriuretic Peptide 129.99 0-100 pg/mL X-Ray, Labs, Meds, VS Comment All studies performed the ED were evaluated by me personally. Several studies were pending at time of this note. Serum laboratories revealed a anemic state as well as a hyperglycemic state of 382. Due to the patient's inability to control blood sugar with insulin today, patient will be admitted for stabilization of her blood sugar as well as assistance with outpatient medications. Time of 1ST Reevaluation: 00:19 Reevaluation 1ST: Unchanged Consultation: PCP Patient Education/Counseling: Diagnosis, Treatment Family Education/Counseling: Diagnosis, Treatment SEPSIS Sepsis Screen Date sepsis recognized/suspect: Jan 18, 2025 Time Sepsis recognized/suspect: 2108 Recent Procedure: No On Antibiotic Therapy: No Respiratory Rate >20: No Heart Rate >90: No Temp<36 C (96.8 F) or >38.3 C: No SBP <90 or MAP <65 mmHG: No New Acute Mental Status Change: No Is the patient on CPAP, BIPAP,: No Physician Orders Urinalysis (01/18/25 21:31) Heplock Iv (01/18/25 21:31) Electrocardigram (01/18/25 21:31) Troponin-I Hs (01/19/25 00:31) Accucheck (01/18/25 21:31) Sodium Chloride 0.9% (01/19/25 00:00) Vital Signs Date Time Temp Pulse Resp B/P (MAP) Pulse Ox O2 Delivery O2 Flow Rate FiO2 01/18/25 21:05 97.9 109 16 134/54 95 97.9 Laboratory Tests Test 01/18/25 21:50 White Blood Count 3.7 10^3/uL (4.4-10.8) L Departure 1 Departure Time of Disposition: 00:21 Impression: Primary Impression: Hyperglycemia Additional Impression: Anemia Disposition: ADMITTED INPATIENT Condition: Stable Discharged With: Self, Spouse Critical Care Note Critical Care Time?: No Stability Stability form required: No Heart Score Heart Score: Heart Score Response (Comments) Value History N/A 0 EKG N/A 0 Age N/A 0 Risk Factors N/A 0 Troponin N/A 0 Total 0 IRIS LEE PAC Jan 19, 2025 00:05
[2025-01-19] MEDS: InsuLIN REG 1unit/0.01ml Soln (100units/ml) IV ONE (01:46)
[2025-01-19] MEDS: SODIUM CHLORIDE 0.9% 1,000 ML IV ONE (01:56)
[2025-01-19 02:05] VITALS: BP 131/51; PULSE 86; RESP 20; TEMP 97.6; O2SAT 96
[2025-01-19 02:30] LABS: Albumin 3.9 g/dL (3.2-4.8); Alkaline Phosphatase 91.0 U/L (46-116); Bilirubin, Total 1.1 mg/dL (0.2-1.0); Magnesium 1.8 mg/dL (1.6-2.6); Total Protein 6.8 g/dL (5.7-8.2)
[2025-01-19 02:31] LABS: Alanine Aminotransferase 54.0 U/L (7-40)
[2025-01-19] MEDS ORDERED: DEXTROSE (50%) 50ML SYRG IV PRN (02:45)
--- NOTE | 2025-01-19 02:59 | DVH ---
CHEST RADIOGRAPH Indication: SOB Technique: 1 view Comparison: None available FINDINGS: Lines and Tubes: Left implanted cardiac device lead terminates over the right ventricle. Lungs/Pleura: No focal consolidation, pleural effusion or pneumothorax. Mild bilateral perihilar inte rstitial opacities. Cardiomediastinum: Mildly enlarged heart size with valve replacement and aortic atherosclerosis. Other: No acute osseous abnormality. Sternotomy wires with a single inferior fracture. IMPRESSION: 1. Findings of mild heart failure. No focal consolidation.
[2025-01-19] MEDS: SODIUM CHLORIDE 0.9% 250 ML IV ONE (03:02)
[2025-01-19 03:05] LABS: Bilirubin, Direct 0.3 mg/dL (<0.3)
[2025-01-19] MEDS: INSULIN LANTUS (GLARGINE) 1 /0.01ml (100units/ml) SC ONE (03:23)
[2025-01-19] MEDS ORDERED: ACCU-CHEK COMFORT CURVE STRIP VI SCH (07:00)
[2025-01-19] MEDS ORDERED: InsuLIN REG 1unit/0.01ml Soln (100units/ml) SC SCH (07:00)
--- NOTE | 2025-01-19 11:03 | DVHDSRES ---
Discharge Summary Date of Admission Resident Creating Document: ADRY SALCEDO RESIDENT Date of Discharge: Jan 19, 2025 Admitting Diagnosis Hyperglycemia Wounds: No wounds Labs/Diagnostic Data: Laboratory Results Test 01/19/25 04:14 01/18/25 22:57 01/18/25 21:50 POC Glucose 204 mg/dl (70-106) Troponin I High Sensitivity 9 ng/L (</=34) White Blood Count 3.7 10^3/uL (4.4-10.8) Red Blood Count 3.79 10^6/uL (4.0-5.20) Hemoglobin 11.7 g/dL (12.2-16.2) Hematocrit 35.0 % (36.0-46.0) Mean Corpuscular Volume 92.4 fL (80.0-100.0) Mean Corpuscular Hemoglobin 31.0 pg (28.0-32.0) Mean Corpuscular Hemoglobin Concent 33.5 g/dL (32.0-36.0) Red Cell Distribution Width 18.0 % (11.8-14.3) Platelet Count 264 10^3/uL (140-450) Mean Platelet Volume 7.7 fL (6.9-10.8) Neutrophils (%) (Auto) 67.9 % (37.0-80.0) Lymphocytes (%) (Auto) 23.6 % (10.0-50.0) Monocytes (%) (Auto) 7.6 % (0.0-12.0) Eosinophils (%) (Auto) 0.2 % (0.0-7.0) Basophils (%) (Auto) 0.7 % (0.0-2.0) Neutrophils # (Auto) 2.5 10 ^3/uL (1.6-8.6) Lymphocytes # (Auto) 0.9 10 ^3/uL (0.4-5.4) Monocytes # (Auto) 0.3 10 ^3/uL (0-1.3) Eosinophils # (Auto) 0 10 ^3/uL (0-0.8) Basophils # (Auto) 0 10 ^3/uL (0-0.2) Nucleated Red Blood Cells 0.1 % Sodium Level 136 mmol/L (136-145) Potassium Level 4.8 mmol/L (3.5-5.1) Chloride Level 101 mmol/L (98-107) Carbon Dioxide Level 27 mmol/L (20-31) Anion Gap 8 (5-15) Blood Urea Nitrogen 23 mg/dL (9-23) Creatinine 1.01 mg/dL (0.550-1.02) Glomerular Filtration Rate Calc 60 mL/min (>90) BUN/Creatinine Ratio 22.8 (10.0-20.0) Serum Glucose 386 mg/dL (74-106) Calcium Level 8.6 mg/dL (8.7-10.4) Phosphorus Level 2.6 mg/dL (2.4-5.1) Magnesium Level 1.8 mg/dL (1.6-2.6) Total Bilirubin 1.1 mg/dL (0.2-1.0) Direct Bilirubin 0.3 mg/dL (<0.3) Aspartate Amino Transferase (AST) 34 U/L (13-40) Alanine Aminotransferase (ALT) 54 U/L (7-40) Alkaline Phosphatase 91 U/L (46-116) B-Type Natriuretic Peptide 129.99 pg/mL (0-100) Total Protein 6.8 g/dL (5.7-8.2) Albumin 3.9 g/dL (3.2-4.8) Thyroid Stimulating Hormone (TSH) 3.31 uIU/mL (0.55-4.78) Other Laboratory Tests 01/18/25 21:50 Brief Hx & Hospital Course: Ms. Miner is a 69 year old female with PMHx of diabetes mellitus, mitral valve replacement on warfarin, hypertension, and hyperlipidemia, who presented to the ED with chief complaint of hyperglycemia. The patient's states that for the last couple of days she has been unable to maintain her blood sugar under 390. Her , who recently became her primary customer service associate, states he has been holding the patient's Lantus due to fears of inducing hypoglycemia. He states that they have been using her short acting insulin only and have not been able to control the blood glucose. She denies nausea, thirst, increased urination, disorientation, abdominal pain, chest pain, shortness of breath, or any other symptoms. Due to inability control blood sugar levels, they sought medical care. On evaluation in ED, the patient was slightly tachycardic, however other vitals were stable. Initial lab shows WBC 3.7, normocytic anemia, and hyperglycemia. Chest xray showed mild bilateral perihilar interstitial opacities. The patient was started on IV fluids and given Lantus 20 U. On reevaluation, vitals had normalized after IV bolus and follow up glucometer after Lantus showed blood sugar of 210. The patient was considered stable for discharge home. Both the patient and her were educated on proper management of insulin therapy. All questions were thoroughly answered, both the patient and her state they understand and agree with the proposed course of action. Physical Exam: General: The patient alert and oriented in person place and time. Patient following commands HEENT: Normocephalic, atraumatic, normal reactive pupils, EOM intact, pink conjunctiva, pink moist mucous membrane Respiratory/pulmonary: Bilateral chest expansion, no pain on palpation of chest wall, clear lungs bilaterally, vesicular murmurs present in almost all lung jackson, no associated crackles or wheezes. Cardiovascular: Normal RRR, normal S1 and S2, no murmurs Abdomen: Abdomen nondistended, normal bowel sounds, soft, there is no pain to palpation in any of the abdominal quadrants, no palpable masses. Extremities: No deformities, there is no peripheral edema present at the lower extremities, normal pulses, presence of large circular on posterior surface of the left calf. Skin: No rashes or pruritus, there is no sacral edema present at this time. Neurological: Intact cranial nerves with no focal neurologic deficits Case discussed with Dr. Kenny Goals of care discussed with the patient and her for over 27 minutes. Operations or Procedures CHEST RADIOGRAPH Indication: SOB Technique: 1 view Comparison: None available FINDINGS: Lines and Tubes: Left implanted cardiac device lead terminates over the right ventricle. Lungs/Pleura: No focal consolidation, pleural effusion or pneumothorax. Mild bilateral perihilar interstitial opacities. Cardiomediastinum: Mildly enlarged heart size with valve replacement and aortic atherosclerosis. Other: No acute osseous abnormality. Sternotomy wires with a single inferior fracture. IMPRESSION: 1. Findings of mild heart failure. No focal consolidation. Condition at Discharge: Stable Final Diagnosis/Problems List Simple hyperglycemia Diabetes mellitus insulin requiring with hyperglycemia, HB A1c be 8.7 Hypertension Hyperlipidemia History of mitral valve replacement on warfarin Discharge Disposition: Home Discharge Instruct/Medications Follow Up/Referral: Please follow up with PCP within 1-2 weeks Please return to the ED should futher symptoms or concerns arise. Scheduled Aspirin (Aspir-81), 81 MG PO DAILY, (Reported) Atorvastatin Calcium (Atorvastatin Calcium), 1 TAB PO DAILY, (Reported) Cholecalciferol (Vitamin D3), 1 TAB PO DAILY, (Reported) Furosemide (Furosemide), 1 TAB PO DAILY, (Reported) Levetiracetam (Levetiracetam), 1 TAB PO BID, (Reported) Losartan Potassium (Losartan Potassium), 1 TAB PO DAILY, (Reported) Metformin Hydrochloride (Metformin Hcl), 1 TAB PO BID Metoprolol Succinate (Metoprolol Succinate Er), 1 TAB PO DAILY, (Reported) Nitroglycerin (Ntrostat Sublingual), 0.4 MG SL PRN, (Reported) Omeprazole (Omeprazole Dr), 1 CAP PO DAILY, (Reported) Paroxetine Hydrochloride (Paroxetine Hydrochloride), 1 TAB PO DAILY, (Reported) Warfarin Sodium (Warfarin Sodium), 1 TAB PO DAILY Miscellaneous Medications Gabapentin (Gabapentin), CAP PO, (Reported) Insulin Glargine (Toujeo Solostar), SC, (Reported) Insulin Glargine (Lantus Solostar), SC, (Reported) Insulin Lispro (Insulin Lispro Kwikpen), SC, (Reported) Isosorbide Dinitrate (Isosorbide Dinitrate), TAB PO, (Reported) Oxybutynin Chloride (Oxybutynin Chloride), (Reported) Potassium Chloride (Klor-Con M10), (Reported) Tirzepatide (Mounjaro), (Reported) Discontinued Medications Warfarin Sodium (Warfarin Sodium), 1 TAB PO DAILY, (Reported) Warfarin Sodium (Warfarin Sodium), TAB PO, (Reported) Discharge Statement: "Patient was advised to return to the ER or call 911 if any headaches, dizziness, shortness of breath, chest pain, abdominal pain, bleeding, fevers, or worsening of medical condition. Patient was counseled about treatment plan, medications, possible side effects, patientverbalized understanding. All questions were answered to the best of my ability. This discharge took greater then 30 minutes in planning, reviewing documentation, counseling the patient, and discussing with other team members." ASSESSMENT ASSESSMENT Assessment Date of Service: Jan 19, 2025 Billing Provider: BLAS KENNY MD Common Visit Codes: 26379-YCQ/OBS DISCH DAY >30min ADRY SALCEDO Jan 19, 2025 11:03 JIMI SIMPSON RESIDENT Jan 19, 2025 21:58 BLAS KENNY MD Jan 21, 2025 09:13
== END 2025-01-19 04:27 | disposition home or self-care (01) ==
LOC: ER 20:50
DX: E11.65 Type 2 diabetes mellitus with hyperglycemia (principal); D64.9 Anemia, unspecified; Z79.899 Other long term (current) drug therapy; Z88.8 Allergy status to other drugs, medicaments and biological substances; Z79.82 Long term (current) use of aspirin; Z79.4 Long term (current) use of insulin; Z79.01 Long term (current) use of anticoagulants; Z79.84 Long term (current) use of oral hypoglycemic drugs
CPT/HCPCS: 36415; 71045; 80048; 80076; 82306; 82607; 82947; 83735; 83880; 84100; 84443; 84484; 85025; 96361; 96372; 96374; 99284; J1815; J7030; J7050; 82962